=== PATIENT | male | born 1965 | race Caucasian/White ===

== ENCOUNTER 2017-10-31 10:52 | Emergency (ER) | payer OTHER ==
--- OUTSIDE RECORDS SUMMARY | 2017-10-31 11:02 | XMS REPORT ---
:1965 External Reference #:[id number] Author Organization [facility] Address [address] [facility]/[address] [place] [address] Phone [phone] Care Team Providers Name Role Phone Ruchi Pozo MD Care Team Information Manager Spring Unavailable Payers Type Date Identification Numbers Payment Provider Subscriber Commercial Policy Number: [id number] [facility] Mercedezjoseph Cabrales PayID: [id number] [address] [place] [address] Problems Date Description Provider Status Onset: 02/19/2016 Tobacco user Jayden Powell Active Onset: 02/19/2016 Chronic obstructive lung disease AndreJayden MAYLIN Active Family History Date Family Member(s) Problem(s) Comments Father 70 Father Ulcer Mother due to Unknown Causes () - PASSED AT 69 Social History Type Date Description Comments Marital Status Legal Status: ETOH Use Occasionally consumes alcohol Smoking Heavy tobacco smoker (more than 10 cigarettes/day) Daily Caffeine Consumes on average 5 cups of regular coffee per day Allergies, Adverse Reactions, Alerts Date Description Reaction Status Severity Comments 02/15/2017 NKDA active Medications Medication Date Status Form Strength Qnty SIG Indications Ordering Provider No Active Active Unknown Medications 018 Viagra Hx Tablets 100mg 10tabs 1/2-1 tab by N52.9 Sánchez, 017 - mouth every Ahmad M., day as M.DSydney 018 needed Terbinafine Hx Tablets 250mg 90tabs 1 by mouth B35.1 Sánchez, HCL 017 - every day Ahmad M., M.DSydney 018 Mobic Hx Tablets 15mg 30tabs 1 by mouth M25.572 Sánchez, 016 - every Ahmad M., morning-Rx M.D. 018 By Set Up Inspector Vital Signs Date Vital Result Comment 10/08/2017 BP Systolic 118 mmHg BP Diastolic 68 mmHg Height 72 inches 6'0" Weight 249.00 lb BMI (Body Mass Index) 33.8 kg/m2 Heart Rate 80 /min Respiratory Rate 18 /min 06/04/2017 BP Systolic 124 mmHg BP Diastolic 68 mmHg Height 72 inches 6'0" Weight 254.00 lb BMI (Body Mass Index) 34.4 kg/m2 Heart Rate 66 /min Respiratory Rate 18 /min 02/15/2017 BP Systolic 126 mmHg BP Diastolic 66 mmHg Height 72 inches 6'0" Weight 243.00 lb BMI (Body Mass Index) 33.0 kg/m2 Heart Rate 59 /min Respiratory Rate 16 /min 02/28/2016 BP Systolic 130 mmHg BP Diastolic 68 mmHg Height 72 inches 6'0" Weight 241.00 lb BMI (Body Mass Index) 32.7 kg/m2 Heart Rate 78 /min Respiratory Rate 18 /min 02/19/2016 BP Systolic 138 mmHg BP Diastolic 82 mmHg Height 72 inches 6'0" Weight 239.00 lb BMI (Body Mass Index) 32.4 kg/m2 Heart Rate 72 /min Respiratory Rate 19 /min Results Test Date Test Result H/L Range Note CBC Auto Diff 02/15/2017 White Blood Count 6.2 10^3/uL 3.5-10.8 Red Blood Count 5.04 10^6/uL 4.0-5.4 Hemoglobin 15.7 g/dL 14.0-18.0 Hematocrit 45 % 42-52 Mean Corpuscular Volume 90 fL 80-94 Mean Corpuscular Hemoglobin 31 pg 27-31 Mean Corpuscular HGB Conc 35 g/dL 31-36 Red Cell Distribution Width 13 % 10.5-15 Platelet Count 195 10^3/uL 150-450 Mean Platelet Volume 9 um3 7.4-10.4 Abs Neutrophils 3.6 10^3/uL 1.5-7.7 Abs Lymphocytes 2.0 10^3/uL 1.0-4.8 Abs Monocytes 0.4 10^3/uL 0-0.8 Abs Eosinophils 0.2 10^3/uL 0-0.6 Abs Basophils 0 10^3/uL 0-0.2 Abs Nucleated RBC 0 10^3/uL Granulocyte % 58.2 % 38-83 Lymphocyte % 31.3 % 25-47 Monocyte % 6.7 % 1-9 Eosinophil % 3.1 % 0-6 Basophil % 0.7 % 0-2 Nucleated Red Blood Cells % 0.1 Comp Metabolic Panel 02/15/2017 Sodium 137 mmol/L 133-145 Potassium 4.2 mmol/L 3.5-5.0 Chloride 105 mmol/L 101-111 Co2 Carbon Dioxide 25 mmol/L 22-32 Anion Gap 7 mmol/L 2-11 Glucose 96 mg/dL 70-100 Blood Urea Nitrogen 17 mg/dL 6-24 Creatinine 0.88 mg/dL 0.67-1.17 BUN/Creatinine Ratio 19.3 8-20 Calcium 9.5 mg/dL 8.6-10.3 Total Protein 6.6 g/dL 6.4-8.9 Albumin 4.3 g/dL 3.2-5.2 Globulin 2.3 g/dL 2-4 Albumin/Globulin Ratio 1.9 1-3 Total Bilirubin 0.50 mg/dL 0.2-1.0 Alkaline Phosphatase 65 U/L 34-104 Alt 15 U/L 7-52 Ast 17 U/L 13-39 Egfr Non- 90.9 >60 Egfr 117.0 >60 1 Lipid Profile (Trig/Chol/HDL) 02/15/2017 Triglycerides 141 mg/dL 2 Cholesterol 190 mg/dL 3 HDL Cholesterol 48.2 mg/dL 4 LDL Cholesterol 114 mg/dL 5 Laboratory test finding 02/15/2017 TSH (Thyroid Stim Horm) 2.02 mcIU/mL 0.34-5.60 6 Hemoglobin A1c (Glyco HGB) 5.7 % Less than 6.0 7 PSA Screening 0.928 ng/mL 0-4.000 8 Lipid Profile (Trig/Chol/HDL) 02/19/2016 Triglycerides 97 mg/dL 9 Cholesterol 200 mg/dL 10 HDL Cholesterol 56.8 mg/dL 11 LDL Cholesterol 124 mg/dL 12 Laboratory test finding 02/19/2016 TSH (Thyroid Stim Horm) 1.62 ?IU/mL 0.34-5.60 13 Vitamin D Total 25(Oh) 48.1 ng/mL 30-50 14 CBC Auto Diff 02/19/2016 White Blood Count 7.1 10^3/uL 3.5-10.8 Red Blood Count 5.06 10^6/uL 4.0-5.4 Hemoglobin 15.2 g/dL 14.0-18.0 Hematocrit 45 % 42-52 Mean Corpuscular Volume 90 fL 80-94 Mean Corpuscular Hemoglobin 30 pg 27-31 Mean Corpuscular HGB Conc 34 g/dL 31-36 Red Cell Distribution Width 13 % 10.5-15 Platelet Count 205 10^3/uL 150-450 Mean Platelet Volume 9 um3 7.4-10.4 Abs Neutrophils 3.9 10^3/uL 1.5-7.7 Abs Lymphocytes 2.4 10^3/uL 1.0-4.8 Abs Monocytes 0.5 10^3/uL 0-0.8 Abs Eosinophils 0.3 10^3/uL 0-0.6 Abs Basophils 0 10^3/uL 0-0.2 Abs Nucleated RBC 0.03 10^3/uL Granulocyte % 54.4 % 38-83 Lymphocyte % 33.7 % 25-47 Monocyte % 7.6 % 1-9 Eosinophil % 3.7 % 0-6 Basophil % 0.6 % 0-2 Nucleated Red Blood Cells % 0.5 Comp Metabolic Panel 02/19/2016 Sodium 138 mmol/L 133-145 Potassium 4.1 mmol/L 3.5-5.0 Chloride 105 mmol/L 101-111 Co2 Carbon Dioxide 25 mmol/L 22-32 Anion Gap 8 mmol/L 2-11 Glucose 83 mg/dL 70-100 Blood Urea Nitrogen 19 mg/dL 6-24 Creatinine 0.79 mg/dL 0.67-1.17 BUN/Creatinine Ratio 24.1 High 8-20 Calcium 9.6 mg/dL 8.6-10.3 Total Protein 6.9 g/dL 6.4-8.9 Albumin 4.6 g/dL 3.2-5.2 Globulin 2.3 g/dL 2-4 Albumin/Globulin Ratio 2.0 1-3 Total Bilirubin 0.30 mg/dL 0.2-1.0 Alkaline Phosphatase 65 U/L 34-104 Alt 15 U/L 7-52 Ast 16 U/L 13-39 Egfr Non- 103.0 >60 Egfr 132.5 >60 15 Laboratory test finding 02/19/2016 PSA Screening 0.363 ng/mL 0-4.000 16 1 Because ethnic data is not always readily available, this report includes an eGFR for both -Americans and non- Americans. The National Kidney Disease Education Program (NKDEP) does not endorse the use of the MDRD equation for patients that are not between the ages of 18 and 70, are , have extremes of body size, muscle mass, or nutritional status, or are non- or non-. According to the National Kidney Foundation, irrespective of diagnosis, the stage of the disease is based on the level of kidney function: Stage Description GFR(mL/min/1.73 m(2)) 1 Kidney damage with normal or decreased GFR 90 2 Kidney damage with mild decrease in GFR 60-89 3 Moderate decrease in GFR 30-59 4 Severe decrease in GFR 15-29 5 Kidney failure <15 (or dialysis) 2 Desirable <150 Borderline high 150-199 High 200-499 Very High >500 3 Desirable <200 Borderline high 200-239 High >239 4 Low <40 Desirable: 40-60 High: >60 5 Desirable: <100 mg/dL Near Optimal: 100-129 mg/dL Borderline High: 130-159 mg/dL High: 160-189 mg/dL Very High: >189 mg/dL 6 [id number] Therapeutic target for the treatment of diabetes Mellitus patients is <7% HBA1C, and in selective patients <6.0%.Please refer to [place] Diabetes Association Diabetic care guidelines for further information. 8 Serum levels of PSA measured using the [employer] Aki DXI Hybritech immunoassay should not be interpreted as absolute evidence of the presence or absence of disease. The PSA value should be used in conjunction with other pertinent clinical diagnostic procedures. The values obtained with different assay methods or kits cannot be used interchangeably. 9 Desirable <150 Borderline high 150-199 High 200-499 Very High >500 10 Desirable <200 Borderline high 200-239 High >239 11 Low <40 Desirable: 40-60 High: >60 12 Desirable: <100 mg/dL Near Optimal: 100-129 mg/dL Borderline High: 130-159 mg/dL High: 160-189 mg/dL Very High: >189 mg/dL 13 [facility] [place] [id number] [facility] [place] [address] 15 Because ethnic data is not always readily available, this report includes an eGFR for both -Americans and non- Americans. The National Kidney Disease Education Program (NKDEP) does not endorse the use of the MDRD equation for patients that are not between the ages of 18 and 70, are , have extremes of body size, muscle mass, or nutritional status, or are non- or non-. According to the National Kidney Foundation, irrespective of diagnosis, the stage of the disease is based on the level of kidney function: Stage Description GFR(mL/min/1.73 m(2)) 1 Kidney damage with normal or decreased GFR 90 2 Kidney damage with mild decrease in GFR 60-89 3 Moderate decrease in GFR 30-59 4 Severe decrease in GFR 15-29 5 Kidney failure <15 (or dialysis) 16 Serum levels of PSA measured using the [employer]by thredUP DXI Hybritech immunoassay should not be interpreted as absolute evidence of the presence or absence of disease. The PSA value should be used in conjunction with other pertinent clinical diagnostic procedures. A PSA value in the range of 0.1 to 0.6 ng/ml is indeterminate if being used as an indicator of recurrent or residual disease. The values obtained with different assay methods or kits cannot be used interchangeably. Procedures Date CPT Code Description Status 10/08/2017 29817 Visual Screening Test Completed 10/08/2017 01202 Audiometry, Bekesy, Screening Completed 02/15/2017 27852 Visual Screening Test Completed 02/15/2017 52389 EKG Completed 02/15/2017 00417 Audiometry, Bekesy, Screening Completed Encounters Type Date Location Provider CPT E/M Dx Office Visit 10/08/2017 3:15p [facility] Ruchi Pozo M.D. 82890 J44.9 E78.2 L20.9 J30.9 F17.210 E66.01 M15.9 M25.572 M77.32 D48.5 B35.1 N52.9 M25.569 Z00.01 Office Visit 06/04/2017 2:45p [facility] Ruchi Pozo M.D. 26118 J44.9 E78.2 L20.9 J30.9 F17.210 E66.01 M15.9 M25.572 M77.32 D48.5 B35.1 N52.9 Office Visit 02/15/2017 10:15a [facility] Jayden Powell [facility] 20806 Z00.01 F17.210 J44.9 E66.01 M15.9 B35.3 Office Visit 02/28/2016 2:15p [facility] Ruchi Pozo M.D. 48014 M25.572 J44.9 F17.210 E78.2 L20.9 J30.9 D48.5 Office Visit 02/19/2016 11:15a [facility] Jayden Powell [facility] [address]409 M15.9 M77.32 E66.9 Plan of Care 10/08/2017 - Ruchi Pozo M.D.J44.9 Chronic obstructive pulmonary disease, unspecifiedComments:INCREASE PO FLUIDRESTSMOKING TMQNJCODOY72.2 Mixed hyperlipidemiaComments:DIET REVIEWED CONTINUE DIETWT LOSSF/U LAB FBWL20.9 Atopic dermatitis, unspecifiedComments:SKIN CARE INSTRUCTIONS LOTION OR BABY OIL 2-3 APPLICATION PER DAYUSE MOISTURIZING SOAPAVOID PROLONGED WATER EXPOSUREAVOID USING HOT WATER IN DLCWHCN54.9 Allergic rhinitis, unspecifiedComments:INCREASE PO FLUID USE ANTIHISTAMINE PRN SECOND HAND SMOKING MROQLQIGUF93.210 Nicotine dependence, cigarettes, uncomplicatedComments:SMOKING CESSATION COUNCELLING DISCUSSION RE: CESSATION AJZZKWTM34.01 Morbid (severe) obesity due to excess caloriesComments:WT LOSS COUNCELLINGEXERCISEDIET AOTWGVIRXTKI62.9 Polyosteoarthritis, unspecifiedComments:EXERCISE/HEAT/ MESSAGETYLENOL OR MOTRIN PRNAVOID HEAVY LIFTINGWT LOSSM25.572 Pain in left ankle and joints of left footComments:EXERCISE/HEAT/MESSAGETYLENOL OR MOTRIN PRNACE WRAP PRN USE SHOES INSERTS/ CUSHION F/U WITH XHSBNUBEH86.32 Calcaneal spur, left footComments:EXERCISE/HEAT/MESSAGE TYLENOL OR MOTRIN PRNACE WRAP PRND48.5 Neoplasm of uncertain behavior of skinComments:F/U WITH JDCZNTHVZSMR44.1 Tinea unguiumComments:NAIL CARE INSTRUCTIONSTEACHING ABOUT DISEASE AND TREATMENT CQCZKIGU79.9 Male erectile dysfunction, unspecifiedComments:COUNCELLING AND TEACHING ON DIFEEERENT TREATMENT OQHJNQQG27.569 Pain in unspecified kneeComments:EXERCISE/HEAT /MESSAGEAVOID HEAVY LIFTING WT LOSSTYLENOL OR MOTRIN PRNZ00.01 Encounter for general adult medical exam w abnormal findingsComments:GOOD NUTRITION /EXERCISEDENTAL/ FLOSSING/ SELF CAREDROWNING/ SUN SAFETYSEAT BELT/ DRIVING SAFETYSPORT BIKE/ HELMET USESPORTS/ INJURY PREVENTIONVIOLENCE PREVENTION/ GUN SAFETYPARENTING ADVICE"SAFE AT HOME"SEX EDUCATION/ COUNSELINGBREAST/ TESTICULAR SELF EXAMEDUCATION GOALS/ ACTIVITIESLIMIT TV/ INTERNETUSETOBACCO/ ALCOHOL/ DRUGS/ INHALANTSPEER REFUSAL SKILLSSOCIAL INTERACTIONFAMILY FUNCTIONINGSELF CONTROLDEPRESSION/ ANXIETYNEXT APPOINTMENTYEARLY PHYSICAL WELLNESS EVALUATION RTC FOR FBW
[2017-10-31 11:50] VITALS: BP 140/81
--- NOTE | 2017-10-31 12:35 | UC ---
Respiratory Complaint HPI - HPI Summary HPI Summary: 52 yo male with cough x 3 months past day has had fever/chills and myalgias cough now productive - History of Current Complaint Chief Complaint: UCGeneralIllness Stated Complaint: COUGH,HEADACHE,SORE THROAT Time Seen by Provider: 10/31/17 12:20 Hx Obtained From: Patient Onset/Duration: Gradual Onset, Lasting Weeks - 12 Timing: Constant Severity Initially: Mild Severity Currently: Mild Pain Intensity: 4 Pain Scale Used: 0-10 Numeric Character: Cough: Nonproductive Aggravating Factors: Nothing Associated Signs And Symptoms: Positive: Fever - x 1 days, Chills - x 1 day, Nasal Congestion - Allergies/Home Medications Allergies/Adverse Reactions: Allergies Allergy/AdvReac Type Severity Reaction Status Date / Time No Known Allergies Allergy Verified 10/31/17 11:42 Home Medications: Home Medications L.acidoph,Paracasei, B.lactis [Probiotic] 10/31/17 [History] Melatonin PRN 10/31/17 [History] PMH/Surg Hx/FS Hx/Imm Hx Previously Healthy: Yes - Surgical History Surgical History: Yes Surgery Procedure, Year, and Place: right knee 2009~;. testicular benign mass 1988. basal cell removal left shoulder. DEVIATED SEPTUM - Family History Known Family History: Positive: Hypertension - Social History Alcohol Use: Rare Substance Use Type: None Smoking Status (MU): Heavy Every Day Tobacco Smoker Amount Used/How Often: 1 ppd Length of Time of Smoking/Using Tobacco: started age 14 Cessation Counseling: Patient Advised to Stop Review of Systems Constitutional: Fever, Chills Respiratory: Cough - x3 m Musculoskeletal: Negative Neurological: Negative Is Patient Immunocompromised?: No All Other Systems Reviewed And Are Negative: Yes Physical Exam Triage Information Reviewed: Yes Appearance: Well-Appearing, No Pain Distress, Well-Nourished Vital Signs: Initial Vital Signs Temp 98.7 F 10/31/17 11:44 Pulse 81 10/31/17 11:44 Resp 18 10/31/17 11:44 BP 140/81 10/31/17 11:44 Pulse Ox 97 10/31/17 11:44 Vital Signs Reviewed: Yes Eyes: Positive: Conjunctiva Clear ENT: Positive: Uvula midline. Negative: Nasal congestion, Nasal drainage Neck: Positive: Supple, Nontender Respiratory: Positive: Normal breath sounds, No respiratory distress, Wheezing - with forced expiration only Cardiovascular: Positive: RRR, No Murmur Neurological: Positive: Alert Psychological Exam: Normal Skin Exam: Normal UC Diagnostic Evaluation - Laboratory Pertinent Lab Values Are: WNL Except: - influenza B (+) O2 Sat by Pulse Oximetry: 97 - normal/not hypoxic - Radiology Xray Interpretation: No Acute Changes Radiology Interpretation Completed By: Radiologist Respiratory Course/Dx - Differential Dx/Diagnosis Provider Diagnoses: influenza. chronic cough. tobacco abuse Discharge - Discharge Plan Condition: Stable Disposition: HOME Prescriptions: Oseltamivir CAP* [Tamiflu CAP*] 75 mg PO BID #10 cap Patient Education Materials: Influenza (ED) Forms: *Work Release Referrals: Ruchi Pozo MD [Primary Care Provider] - As Soon As Possible Additional Instructions: you have the flu you need to stop smoking see your MD about your chronic cough....you may need pulmonary function studies
--- NOTE | 2017-10-31 12:51 | RAD ---
HISTORY: Cough COMPARISONS: February 26, 2016 VIEWS: 4: Frontal dual-energy and lateral views of the chest. FINDINGS: CARDIOMEDIASTINAL SILHOUETTE: The cardiomediastinal silhouette is normal. SRIKANTH: The srikanth are normal. PLEURA: The costophrenic angles are sharp. No pleural abnormalities are noted. LUNG PARENCHYMA: The lungs are clear. ABDOMEN: The upper abdomen is clear. There is no subphrenic gas. BONES AND SOFT TISSUES: No bone or soft tissue abnormalities are noted. OTHER: None. IMPRESSION: NO ACTIVE CARDIOPULMONARY DISEASE.
== END 2017-10-31 13:04 | disposition home or self-care (01) ==
LOC: UCCORT 10:52
DX: J10.1 Influenza due to other identified influenza virus with other respiratory manifestations (principal); R05 Cough; F17.210 Nicotine dependence, cigarettes, uncomplicated
CPT/HCPCS: 71046; 87502; 99212; G0463

== ENCOUNTER 2018-11-27 08:30 | Emergency (ER) | payer OTHER ==
[2018-11-27 09:09] VITALS: BP 111/70
--- NOTE | 2018-11-27 09:46 | UC ---
Respiratory Complaint HPI - HPI Summary HPI Summary: Pt c/o of nasal congestion, cough, wheezing, X 2 weeks. - History of Current Complaint Chief Complaint: UCRespiratory Stated Complaint: COUGH,CONGESTION Time Seen by Provider: 11/27/18 09:31 Hx Obtained From: Patient Onset/Duration: Gradual Onset, Lasting Weeks, Still Present Timing: Constant Severity Initially: Mild Severity Currently: Moderate Pain Intensity: 0 Character: Cough: Productive Aggravating Factors: Exertion, Deep Breaths, Recumbent Position Alleviating Factors: Nothing Associated Signs And Symptoms: Positive: Chills, Wheezing, URI, Nasal Congestion - Risk Factors Pulmonary Embolism Risk Factors: Smoking Cardiac Risk Factors: Smoking Pseudomonas Risk Factors: Negative Tuberculosis Risk Factors: Negative - Allergies/Home Medications Allergies/Adverse Reactions: Allergies Allergy/AdvReac Type Severity Reaction Status Date / Time No Known Allergies Allergy Verified 11/27/18 09:09 PMH/Surg Hx/FS Hx/Imm Hx Previously Healthy: Yes - Surgical History Surgical History: Yes Surgery Procedure, Year, and Place: right knee 2009~;. testicular benign mass 1988. basal cell removal left shoulder. DEVIATED SEPTUM - Family History Known Family History: Positive: Hypertension - Social History Occupation: Employed Full-time Lives: With Family Alcohol Use: Rare Substance Use Type: None Smoking Status (MU): Heavy Every Day Tobacco Smoker Type: Cigarettes Amount Used/How Often: 1.5 ppd Length of Time of Smoking/Using Tobacco: started age 14 Have You Smoked in the Last Year: Yes - Immunization History Vaccination Up to Date: No Review of Systems All Other Systems Reviewed And Are Negative: Yes Constitutional: Positive: Fatigue Skin: Positive: Negative Eyes: Positive: Negative ENT: Positive: Sinus Congestion Respiratory: Positive: Shortness Of Breath, Cough Cardiovascular: Positive: Negative Gastrointestinal: Positive: Negative Genitourinary: Positive: Negative Motor: Positive: Negative Neurovascular: Positive: Negative Musculoskeletal: Positive: Negative Neurological: Positive: Negative Psychological: Positive: Negative Is Patient Immunocompromised?: No Physical Exam Triage Information Reviewed: Yes Appearance: Ill-Appearing Vital Signs: Initial Vital Signs Temp 98.3 F 11/27/18 09:03 Pulse 69 11/27/18 09:03 Resp 16 11/27/18 09:03 BP 111/70 11/27/18 09:03 Pulse Ox 98 11/27/18 09:03 Vital Signs Reviewed: Yes Eye Exam: Normal ENT: Positive: Nasal congestion Dental Exam: Normal Neck exam: Normal Respiratory: Positive: Decreased breath sounds Cardiovascular Exam: Normal Musculoskeletal Exam: Normal Neurological Exam: Normal Psychological Exam: Normal Skin Exam: Normal Respiratory Course/Dx - Differential Dx/Diagnosis Differential Diagnosis/HQI/PQRI: Bronchitis, Exacerbation Of COPD Provider Diagnosis: Acute exacerbation of chronic obstructive airways disease, Bronchitis Discharge - Sign-Out/Discharge Documenting (check all that apply): Patient Departure All imaging exams completed and their final reports reviewed: No Studies - Discharge Plan Condition: Stable Disposition: HOME Prescriptions: Azithromycin TAB* [Zithromax TAB (Z-CARRIE) 250 mg #6 tabs] 2 tab PO .TODAY, THEN 1 DAILY #1 carrie Fexofenadine/Pseudoephedrine [Rebecca-D 24 Hour Tablet] 1 each PO DAILY #7 tab.er.24h predniSONE TAB* [Deltasone 20 MG TAB*] 20 mg PO DAILY #4 tab Patient Education Materials: Acute Bronchitis (ED), COPD (Chronic Obstructive Pulmonary Disease) (ED) Referrals: Ruchi Pozo MD [Primary Care Provider] - If Needed - Billing Disposition and Condition Condition: STABLE Disposition: Home - Attestation Statements Provider Attestation: Per institutional requirements, I have reviewed the chart, however, I was not consulted specifically or made aware of this patient by the midlevel provider. I did not personally evaluate, interact with , or disposition this patient.
== END 2018-11-27 10:02 | disposition home or self-care (01) ==
LOC: UCCORT 08:30
DX: J44.1 Chronic obstructive pulmonary disease with (acute) exacerbation (principal); F17.210 Nicotine dependence, cigarettes, uncomplicated
CPT/HCPCS: 99212; G0463

== ENCOUNTER 2019-01-14 16:50 | Emergency (ER) | payer OTHER ==
--- OUTSIDE RECORDS SUMMARY | 2019-01-14 17:06 | XMS REPORT | Continuity of Care Document ---
:1965 External Reference #:[id number] Author Name Geraldo Mendenhall N.P. 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/2016 Family History Date Family Member(s) Observation Comments Father 70 Father Ulcer Mother due to Unknown Causes () - PASSED AT 69 Social History Type Date Description Comments Sex Unknown Marital Status Legal Status: ETOH Use Occasionally consumes alcohol Tobacco Use Start: Unknown Heavy tobacco smoker (more than 10 cigarettes/day) Smoking Status Reviewed: 01/03/19 Heavy tobacco smoker (more than 10 cigarettes/day) Allergies, Adverse Reactions, Alerts Description No Known Drug Allergies Medications Active Medications SIG Qnty Indications Ordering Date Provider SM Stool Softener 2 tabs po bid prn 120tabs K59.00 Ruchi Pozo 01/04/2019 Plus Laxative constipation Jason James 8.6-50mg Tablets Claritin 1 by mouth every 30caps J30.9 Margo Pozomaparas 05/13/2018 10mg day Jason James Capsules Azithromycin 1 tab by mouth 10tabs J20.9 SánchezMargomad 05/13/2018 500mg every day x 10 days Jason James Tablets History Medications Amoxicillin 2 by mouth twice a 40tabs J20.9 [facility] 11/11/2017 - 500mg day MJason Grimes 11/20/2017 Tablets Prednisone 2 tab by mouth 20tabs J20.9 [facility] 11/11/2017 - 20mg daily 4 M.Jason 11/20/2017 Tablets days,30x3d,20x2d,1 0x7d No Active Unknown 10/08/2017 - Medications 11/11/2017 Viagra 1/2-1 tab by mouth 10tabs N52.9 [facility] 06/04/2017 - 100mg every day as Jason aJmes 09/23/2017 Tablets needed Terbinafine HCL 1 by mouth every 90tabs B35.1 [facility] 06/04/2017 - day Jason James 09/23/2017 250mg Tablets Mobic 1 by mouth every 30tabs M25.572 [facility] 02/28/2016 - 15mg Tablets morning-Rx By Jason James 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 Vital Signs Date Vital Result Comment 01/04/2019 4:19pm BP Systolic 132 mmHg BP Diastolic 64 mmHg Height 72 inches 6'0" Weight 247.00 lb BMI (Body Mass Index) 33.5 kg/m2 12/21/2018 8:38am BP Systolic 126 mmHg BP Diastolic 72 mmHg Height 72 inches 6'0" Weight 246.00 lb BMI (Body Mass Index) 33.4 kg/m2 Heart Rate 73 /min Respiratory Rate 16 /min 12/01/2018 3:41pm BP Systolic 126 mmHg BP Diastolic 68 mmHg Height 72 inches 6'0" Weight 246.00 lb BMI (Body Mass Index) 33.4 kg/m2 Heart Rate 84 /min Respiratory Rate 18 /min 05/13/2018 4:04pm BP Systolic 132 mmHg BP Diastolic 64 mmHg Height 72 inches 6'0" Weight 243.00 lb BMI (Body Mass Index) 33.0 kg/m2 Heart Rate 73 /min Body Temperature 97.3 F Respiratory Rate 14 /min 11/11/2017 4:26pm BP Systolic 130 mmHg BP Diastolic 62 mmHg Height 72 inches 6'0" Weight 249.00 lb BMI (Body Mass Index) 33.8 kg/m2 Heart Rate 68 /min Body Temperature 97.3 F Respiratory Rate 18 /min 10/08/2017 3:06pm BP Systolic 118 mmHg BP Diastolic 68 mmHg Height 72 inches 6'0" Weight 249.00 lb BMI (Body Mass Index) 33.8 kg/m2 Heart Rate 80 /min Respiratory Rate 18 /min 06/04/2017 2:49pm BP Systolic 124 mmHg BP Diastolic 68 mmHg Height 72 inches 6'0" Weight 254.00 lb BMI (Body Mass Index) 34.4 kg/m2 Heart Rate 66 /min Respiratory Rate 18 /min 02/15/2017 10:02am BP Systolic 126 mmHg BP Diastolic 66 mmHg Height 72 inches 6'0" Weight 243.00 lb BMI (Body Mass Index) 33.0 kg/m2 Heart Rate 59 /min Respiratory Rate 16 /min 02/28/2016 2:20pm BP Systolic 130 mmHg BP Diastolic 68 mmHg Height 72 inches 6'0" Weight 241.00 lb BMI (Body Mass Index) 32.7 kg/m2 Heart Rate 78 /min Respiratory Rate 18 /min 02/19/2016 11:12am BP Systolic 138 mmHg BP Diastolic 82 mmHg Height 72 inches 6'0" Weight 239.00 lb BMI (Body Mass Index) 32.4 kg/m2 Heart Rate 72 /min Respiratory Rate 19 /min Results Test Date Facility Test Result H/L Range Note CBC With Diff 12/21/2018 [facility] WBC 5.0 10*3/uL (4.1-11.0) [facility] (607)- - RBC 4.96 10*6/uL (4.60-6.10) HGB 15.1 g/dL (13.5-18.0) HCT 44.8 % (41.0-53.0) MCV 90.4 fL (80.0-95.0) MCH 30.4 pg (27.0-32.0) MCHC 33.7 g/dL (32.0-36.0) RDW 13.4 % (10.5-14.5) PLT 201 10*3/uL (150-450) MPV 9.3 fL (7.1-10.7) Neut % 63.8 % (35.0-75.0) Lymph % 25.4 % (16.0-52.0) [place] % 7.6 % (0.0-8.0) Eos % 2.6 % (0.0-5.0) Baso % 0.6 % (0.0-4.0) Neut # 3.2 10*3/uL (1.8-7.7) Lymph # 1.3 10*3/uL (1.2-4.8) [place] # 0.4 10*3/uL (0.0-0.8) Eos # 0.1 10*3/uL (0.0-0.5) Baso # 0.0 10*3/uL (0.0-0.2) CMP 12/21/2018 [facility] Sodium 139 mmol/L (136-145) Zack SEE (308)- - Potassium 3.9 mmol/L (3.6-5.2) Chloride 108 mmol/L (100-108) Co2 27 mmol/L (22-31) Anion Gap 4 mmol/L Low (7-16) Urea Nitrogen 15 mg/dL (7-24) Creatinine 0.78 mg/dL Low (0.80-1.30) BUN/Creat Ratio 19.2 RATIO (10.0-20.0) Glucose 81 mg/dL (70-99) Calcium 8.5 mg/dL (8.4-10.2) Total Protein 6.7 g/dL (6.4-8.2) Albumin 4.4 g/dL (3.5-4.6) Globulin 2.3 g/dL Low (2.7-4.3) Alb/Glob Ratio 1.9 RATIO Alkaline Phosphatase 87 U/L (45-117) Bilirubin,Total 0.4 mg/dL (0.0-1.0) Ast (Sgot) 29 U/L (11-39) Alt (SGPT) 53 U/L (12-78) GFR >60 ml/min/1.73m2 (>59) GFR ( Amer) >60 ml/min/1.73m2 (>59) GFR Interpretation <SEE NOTE> 1 Lipid 12/21/2018 [facility] Cholesterol @ 126 mg/dL (0-200) Zack SEE (392)- - Triglyceride @ 50 mg/dL (30-200) HDL Cholesterol @ 40 mg/dL Low (>40) 2 Chol/HDL Ratio 3.2 RATIO 3 LDL Chol (Calc) 76 mg/dL (<130) 4 Hemoglobin A1c 12/21/2018 [facility] Hemoglobin A1c @ 5.7 % (4.0-6.0) 5 113 NARA SEE (607)- - Est Average Glucose 117 mg/dL Laboratory 12/21/2018 [facility] TSH,Ultrasensitive @ 1.480 (0.360- 4.170) test finding 113 NARA SEE mIU/L (607)- - Uric Acid 5.6 mg/dL (3.5-7.2) Esr 3 mm/h (0-20) C Reactive Protein @ <0.3 mg/dL (0.0-0.5) Rheumatoid Factor @ <15 IU/mL (0-15) 25 Hydroxy Vit D @ 36 ng/mL (31-100) 6 Rapid Influenza A 10/31/2017 [facility] Influenza A NEGATIVE Negative 7 & B Molecular Molecular Influenza B Molecular POSITIVE Abnormal Negative Lipid Profile (Trig/Chol/HDL) 02/15/2017 [facility] Triglycerides 141 mg/dL N 8 Cholesterol 190 mg/dL N 9 HDL Cholesterol 48.2 mg/dL N 10 LDL Cholesterol 114 mg/dL N 11 Laboratory test 02/15/2017 [facility] TSH (Thyroid 2.02 mcIU/mL N 0.34-5.60 12 finding Stim Horm) Hemoglobin A1c (Glyco HGB) 5.7 % N Less than 6.0 13 PSA Screening 0.928 ng/mL N 0-4.000 14 Comp Metabolic Panel 02/15/2017 [facility] Sodium 137 mmol/L N 133- 145 Potassium 4.2 mmol/L N 3.5-5.0 Chloride 105 mmol/L N 101-111 Co2 Carbon Dioxide 25 mmol/L N 22-32 Anion Gap 7 mmol/L N 2-11 Glucose 96 mg/dL N 70-100 Blood Urea Nitrogen 17 mg/dL N 6-24 Creatinine 0.88 mg/dL N 0.67-1.17 BUN/Creatinine Ratio 19.3 N 8-20 Calcium 9.5 mg/dL N 8.6-10.3 Total Protein 6.6 g/dL N 6.4-8.9 Albumin 4.3 g/dL N 3.2-5.2 Globulin 2.3 g/dL N 2-4 Albumin/Globulin Ratio 1.9 N 1-3 Total Bilirubin 0.50 mg/dL N 0.2-1.0 Alkaline Phosphatase 65 U/L N 34-104 Alt 15 U/L N 7-52 Ast 17 U/L N 13-39 Egfr Non- 90.9 N >60 Egfr 117.0 N >60 15 CBC Auto Diff 02/15/2017 [facility] White Blood Count 6.2 10^3/uL N 3.5-10.8 Red Blood Count 5.04 10^6/uL N 4.0-5.4 Hemoglobin 15.7 g/dL N 14.0-18.0 Hematocrit 45 % N 42-52 Mean Corpuscular Volume 90 fL N 80-94 Mean Corpuscular Hemoglobin 31 pg N 27-31 Mean Corpuscular HGB Conc 35 g/dL N 31-36 Red Cell Distribution Width 13 % N 10.5-15 Platelet Count 195 10^3/uL N 150-450 Mean Platelet Volume 9 um3 N 7.4-10.4 Abs Neutrophils 3.6 10^3/uL N 1.5-7.7 Abs Lymphocytes 2.0 10^3/uL N 1.0-4.8 Abs Monocytes 0.4 10^3/uL N 0-0.8 Abs Eosinophils 0.2 10^3/uL N 0-0.6 Abs Basophils 0 10^3/uL N 0-0.2 Abs Nucleated RBC 0 10^3/uL N Granulocyte % 58.2 % N 38-83 Lymphocyte % 31.3 % N 25-47 Monocyte % 6.7 % N 1-9 Eosinophil % 3.1 % N 0-6 Basophil % 0.7 % N 0-2 Nucleated Red Blood Cells % 0.1 N Laboratory test 02/19/2016 [facility] PSA Screening 0.363 ng/mL N 0- 4.000 16 finding Comp Metabolic Panel 02/19/2016 [facility] Sodium 138 mmol/L N 133- 145 Potassium 4.1 mmol/L N 3.5-5.0 Chloride 105 mmol/L N 101-111 Co2 Carbon Dioxide 25 mmol/L N 22-32 Anion Gap 8 mmol/L N 2-11 Glucose 83 mg/dL N 70-100 Blood Urea Nitrogen 19 mg/dL N 6-24 Creatinine 0.79 mg/dL N 0.67-1.17 BUN/Creatinine Ratio 24.1 High 8-20 Calcium 9.6 mg/dL N 8.6-10.3 Total Protein 6.9 g/dL N 6.4-8.9 Albumin 4.6 g/dL N 3.2-5.2 Globulin 2.3 g/dL N 2-4 Albumin/Globulin Ratio 2.0 N 1-3 Total Bilirubin 0.30 mg/dL N 0.2-1.0 Alkaline Phosphatase 65 U/L N 34-104 Alt 15 U/L N 7-52 Ast 16 U/L N 13-39 Egfr Non- 103.0 N >60 Egfr 132.5 N >60 17 CBC Auto Diff 02/19/2016 [facility] White Blood Count 7.1 10^3/uL N 3.5-10.8 Red Blood Count 5.06 10^6/uL N 4.0-5.4 Hemoglobin 15.2 g/dL N 14.0-18.0 Hematocrit 45 % N 42-52 Mean Corpuscular Volume 90 fL N 80-94 Mean Corpuscular Hemoglobin 30 pg N 27-31 Mean Corpuscular HGB Conc 34 g/dL N 31-36 Red Cell Distribution Width 13 % N 10.5-15 Platelet Count 205 10^3/uL N 150-450 Mean Platelet Volume 9 um3 N 7.4-10.4 Abs Neutrophils 3.9 10^3/uL N 1.5-7.7 Abs Lymphocytes 2.4 10^3/uL N 1.0-4.8 Abs Monocytes 0.5 10^3/uL N 0-0.8 Abs Eosinophils 0.3 10^3/uL N 0-0.6 Abs Basophils 0 10^3/uL N 0-0.2 Abs Nucleated RBC 0.03 10^3/uL N Granulocyte % 54.4 % N 38-83 Lymphocyte % 33.7 % N 25-47 Monocyte % 7.6 % N 1-9 Eosinophil % 3.7 % N 0-6 Basophil % 0.6 % N 0-2 Nucleated Red Blood Cells % 0.5 N Laboratory test 02/19/2016 [facility] TSH (Thyroid 1.62 ?IU/mL N 0.34 -5.60 18 finding Stim Horm) Vitamin D Total 25(Oh) 48.1 ng/mL N 30-50 19 Lipid Profile (Trig/Chol/HDL) 02/19/2016 [facility] Triglycerides 97 mg /dL N 20 Cholesterol 200 mg/dL N 21 HDL Cholesterol 56.8 mg/dL N 22 LDL Cholesterol 124 mg/dL N 23 1 NORMAL KIDNEY FUNCTION OR MILD DISEASE - GFR >OR=60 CHRONIC KIDNEY DISEASE - GFR 15 - 59 RENAL FAILURE - GFR <15 Est. GFR calculation based on the MDRD study equation, which assumes a steady state for creatinine. Est. GFR should not be used for medication dosing. 2 PER NCEP ATP III GUIDELINES: RESULTS LOWER THAN 40 MG/DL ARE SUGGESTIVE OF INCREASED RISK FOR CORONARY ARTERY DISEASE. RESULTS > OR=TO 60 MG/DL ARE CONSIDERED A NEGATIVE RISK FACTOR. 3 INTERPRETATION OF CHOL-HDL RATIO CHD RISK FEMALE MALE VERY HIGH >8.3 >14.3 HIGH 5.6- 8.3 6.7- 14.3 AVERAGE 3.7- 5.6 4.0- 6.7 BELOW AVERAGE 2.5- 3.7 2.7- 4.0 PROTECTED <2.5 <2.7 4 PER NCEP ATP III GUIDELINES: OPTIMAL < 100 NEAR OPTIMAL 100 - 129 BORDERLINE HIGH 130 - 159 HIGH 160 - 189 VERY HIGH > 189 5 Performed using Siemens Silverpeak immunoassay. Care must be taken when interpreting HbA1c results in patients with a hemoglobin variant or decreased erythrocyte lifespan. Values 5.7 - 6.4% suggest prediabetes. Values >=6.5% are diagnostic for diabetes. REFERENCE: DIABETES CARE 2018: 41([id number]). 6 A REVIEW OF THE LITERATURE SUGGESTS THE FOLLOWING RANGES FOR THE CLASSIFICATION OF 25-OH VITAMIN D STATUS: VITAMIN D STATUS 25-OH VITAMIN D DEFICIENCY <20 NG/ML INSUFFICIENCY 20-30 NG/ML SUFFICIENCY 31 - 100 NG/ML TOXICITY > 100 NG/ML A PEDIATRIC REFERENCE RANGE HAS NOT BEEN ESTABLISHED USING THIS METHOD. 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 14 Serum levels of PSA measured using the Swyft DXI Hybritech immunoassay should not be interpreted as absolute evidence of the presence or absence of disease. The PSA value should be used in conjunction with other pertinent clinical diagnostic procedures. The values obtained with different assay methods or kits cannot be used interchangeably. 15 Because ethnic data is not always [...] Serum levels of PSA measured using the Swyft DXI Hybritech immunoassay should not be interpreted [...] methods or kits cannot be used interchangeably. 17 Because ethnic data is not always readily [...] 15-29 5 Kidney failure <15 (or dialysis) 18 [facility] [address] 19 [facility] [id number] 20 Desirable <150 Borderline high 150-199 High 200-499 Very High >500 21 Desirable <200 Borderline high 200-239 High >239 22 Low <40 Desirable: 40-60 High: >60 23 Desirable: <100 mg/dL Near Optimal: 100-129 mg/dL Borderline High: 130-159 mg/dL High: 160-189 mg/dL Very High: >189 mg/dL Procedures Date Code Description Status 05/13/2018 41823 Spirometry Completed 05/13/2018 20674 Tympanometry Completed 11/11/2017 68900 Spirometry Completed 11/11/2017 25953 Tympanometry Completed 10/08/2017 31401 Visual Screening Test Completed 10/08/2017 65146 Audiometry, Bekesy, Screening Completed 02/15/2017 89557 Visual Screening Test Completed 02/15/2017 69450 EKG Completed 02/15/2017 09522 Audiometry, Bekesy, Screening Completed Encounters Type Date Location Provider Dx Diagnosis Office Visit 01/04/2019 [facility] Geraldo Mendenhall J44.9 Chronic obstructive 4:15p N.P. 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 pulmonary disease, unspecified E78.2 Mixed hyperlipidemia L20.9 Atopic dermatitis, unspecified J30.9 Allergic rhinitis, unspecified F17.210 Nicotine dependence, cigarettes, uncomplicated E66.01 Morbid (severe) obesity due to excess calories M15.9 Polyosteoarthritis, unspecified R05 Cough M25.572 Pain in left ankle and joints of left foot M77.32 Calcaneal spur, left foot R06.02 Shortness of breath D48.5 Neoplasm of uncertain behavior of skin N52.9 Male erectile dysfunction, unspecified J01.40 Acute pansinusitis, unspecified M25.569 Pain in unspecified knee J20.9 Acute bronchitis, unspecified Office Visit 11/11/2017 4:45p [facility] desirae J44.9 Chronic obstructive M., M.D. pulmonary disease, unspecified E78.2 Mixed hyperlipidemia L20.9 Atopic dermatitis, unspecified J30.9 Allergic rhinitis, unspecified F17.210 Nicotine dependence, cigarettes, uncomplicated E66.01 Morbid (severe) obesity due to excess calories M15.9 Polyosteoarthritis, unspecified M25.572 Pain in left ankle and joints of left foot M77.32 Calcaneal spur, left foot D48.5 Neoplasm of uncertain behavior of skin B35.1 Tinea unguium N52.9 Male erectile dysfunction, unspecified M25.569 Pain in unspecified knee J20.9 Acute bronchitis, unspecified J01.40 Acute pansinusitis, unspecified H66.93 Otitis media, unspecified, bilateral R06.02 Shortness of breath R05 Cough R09.81 Nasal congestion Office Visit 10[facility]08[facility]2017 [facility] J44.9 Chronic obstructive M., M.D. pulmonary disease, unspecified E78.2 Mixed hyperlipidemia L20.9 Atopic dermatitis, unspecified J30.9 Allergic rhinitis, unspecified F17.210 Nicotine dependence, cigarettes, uncomplicated E66.01 Morbid (severe) obesity due to excess calories M15.9 Polyosteoarthritis, unspecified M25.572 Pain in left ankle and joints of left foot Z68.33 Body mass index (BMI) 33.0-33.9, adult M77.32 Calcaneal spur, left foot D48.5 Neoplasm of uncertain behavior of skin B35.1 Tinea unguium N52.9 Male erectile dysfunction, unspecified M25.569 Pain in unspecified knee Z00.01 Encounter for general adult medical exam w abnormal findings Office Visit 06/04/2017 2:45p [facility] Ruchi Pozo J44.9 Chronic obstructive M., M.D. 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 unspecified M77.32 Calcaneal spur, left foot E66.9 Obesity, unspecified Plan of Treatment 01/04/2019 - Geraldo Mendenhall N.P.J44.9 Chronic obstructive pulmonary disease, unspecifiedComments:INCREASE PO FLUIDRESTSMOKING JULOQJYGKV17.2 Mixed hyperlipidemiaComments:DIET REVIEWED CONTINUE DIETWT LOSSF/U LAB FBWL20.9 Atopic dermatitis, unspecifiedComments:SKIN CARE INSTRUCTIONS LOTION OR BABY OIL 2-3 APPLICATION PER DAYUSE MOISTURIZING SOAPAVOID PROLONGED WATER EXPOSUREAVOID USING HOT WATER IN AIFPCRP26.9 Allergic rhinitis, unspecifiedComments:INCREASE PO FLUID USE ANTIHISTAMINE PRN SECOND HAND SMOKING LZYOCMAYMI80.210 Nicotine dependence, cigarettes, uncomplicatedComments:SMOKING CESSATION KNHCVSXRGOJL88.01 Morbid (severe) obesity due to excess caloriesComments:WT LOSS COUNCELLINGEXERCISEDIET AUXVWJAIBXHS85.9 Polyosteoarthritis, unspecifiedComments:EXERCISE/HEAT/MESSAGETYLENOL OR MOTRIN PRNAVOID HEAVY LIFTINGWT LOSSM25.572 Pain in left ankle and joints of left footComments:EXERCISE/HEAT/MESSAGETYLENOL OR MOTRIN PRNACE WRAP PRN USE SHOES INSERTS/ CUSHION F/U WITH WPHDLSFNK61.32 Calcaneal spur, left footComments: EXERCISE/HEAT/MESSAGE TYLENOL OR MOTRIN PRNACE WRAP PRND48.5 Neoplasm of uncertain behavior of skinComments:F/U WITH XBMUXZLEMCXU60.1 Tinea unguiumComments:NAIL CARE INSTRUCTIONSTEACHING ABOUT DISEASE AND TREATMENT KFNMZVKH69.9 Male erectile dysfunction, unspecifiedComments:COUNCELLING AND TEACHING ON DIFEEERENT TREATMENT BWDAUNHD55.569 Pain in unspecified kneeComments :EXERCISE/HEAT /MESSAGEAVOID HEAVY LIFTING WT LOSSTYLENOL OR MOTRIN PRND40.11 Neoplasm of uncertain behavior of right jhyiwyR66.811 Right testicular painComments:MQNSGPLT99.9 Vitamin D deficiency, unspecifiedComments:INCREASE EXPOSURE TO SUNREVIEW OF DIETK59.00 Constipation, unspecifiedNew Medication:SM Stool Softener Plus Laxative 8.6-50 mg - 2 tabs po bid prn constipationComments: MOM OR MIRALAX PRNHIGH FIBER DIETINCREASE PO FLUID
--- OUTSIDE RECORDS SUMMARY | 2019-01-14 17:06 | XMS REPORT | Continuity of Care Document ---
:1965 External Reference #:[id number] Author Name Geraldo Mendenhall N.P. 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 Family History Date Family Member(s) Observation Comments Father 70 Father Ulcer Mother due to Unknown Causes () - PASSED AT 69 Social History Type Date Description Comments Sex Unknown Marital Status Legal Status: ETOH Use Occasionally consumes alcohol Tobacco Use Start: Unknown Heavy tobacco smoker (more than 10 cigarettes/day) Smoking Status Reviewed: 12/21/18 Heavy tobacco smoker (more than 10 cigarettes/day) Allergies, Adverse Reactions, Alerts Description No Known Drug Allergies Medications Active Medications SIG Qnty Indications Ordering Provider Date Claritin 1 by mouth 30caps J30.9 Ruchi Pozo, 05/13/2018 10mg Capsules every day M.D. Azithromycin 1 tab by mouth 10tabs J20.9 Ruchi Pozo, 05/13/2018 500mg every day x 10 M.D. Tablets days History Medications Amoxicillin 2 by mouth twice a 40tabs J20.9 Ruchi Pozo 11/11/2017 - 500mg day M., MSydneyD. 11/20/2017 Tablets Prednisone 2 tab by mouth 20tabs J20.9 [facility] - 20mg daily 4 Jason James 11/20/2017 Tablets days,30x3d,20x2d,1 0x7d No Active Unknown 10/08/2017 - Medications 11/11/2017 Viagra 1/2-1 tab by mouth 10tabs N52.9 [facility] 06/04/2017 - 100mg every day as Jason James 09/23/2017 Tablets needed Terbinafine HCL 1 by mouth every 90tabs B35.1 [facility] 06/04/2017 - day Jason James 09/23/2017 250mg Tablets Mobic 1 by mouth every 30tabs M25.572 [facility] 02/28/2016 - 15mg Tablets morning-Rx By Jason James 09/23/2017 Supervisor Smoke Control Immunizations Description No Information Available Vital Signs Date Vital Result Comment 12/21/2018 8:38am BP Systolic 126 mmHg BP [...] Date Facility Test Result H/L Range Note Laboratory test 12/21/2018 [facility] Hemoglobin A1c <pending> finding 113 [facility] SEE (267)- - TSH, Ultrasenstive <pending> Uric Acid <pending> Sed Rate <pending> C Reactive Protein <pending> Rheumatoid Factor <pending> Vitamin D 25 Hydroxy <pending> Rapid Influenza A 10/31/2017 [facility] Influenza A NEGATIVE Negative 1 & B Molecular Molecular Influenza B Molecular POSITIVE Abnormal Negative CBC Auto Diff 02/15/2017 [facility] White Blood Count 6.2 10^3/uL N [...] Nucleated Red Blood Cells % 0.1 N Comp Metabolic Panel 02/15/2017 [facility] Sodium 137 mmol/L N 133- 145 [...] 90.9 N >60 Egfr 117.0 N >60 2 Lipid Profile (Trig/Chol/HDL) 02/15/2017 [facility] Triglycerides 141 mg/dL N 3 Cholesterol 190 mg/dL N 4 HDL Cholesterol 48.2 mg/dL N 5 LDL Cholesterol 114 mg/dL N 6 Laboratory test 02/15/2017 [facility] TSH (Thyroid 2.02 mcIU/mL N 0.34-5.60 7 finding Stim Horm) Hemoglobin A1c (Glyco HGB) 5.7 % N Less than 6.0 8 PSA Screening 0.928 ng/mL N 0-4.000 9 Laboratory test 02/19/2016 [facility] PSA Screening 0.363 ng/mL N 0- 4.000 10 finding Comp Metabolic Panel 02/19/2016 [facility] Sodium 138 mmol/L N 133- 145 [...] 103.0 N >60 Egfr 132.5 N >60 11 CBC Auto Diff 02/19/2016 [facility] White Blood Count 7.1 10^3/uL N [...] Cells % 0.5 N Laboratory test 02/19/2016 [facility] TSH (Thyroid 1.62 ?IU/mL N 0.34 -5.60 12 finding Stim Horm) Vitamin D Total 25(Oh) 48.1 ng/mL N 30-50 13 Lipid Profile (Trig/Chol/HDL) 02/19/2016 [facility] Triglycerides 97 mg /dL N 14 Cholesterol 200 mg/dL N 15 HDL Cholesterol 56.8 mg/dL N 16 LDL Cholesterol 124 mg/dL N 17 1 Coat Ironer Hand: [id number] 2 Because ethnic data is not always readily [...] 15-29 5 Kidney failure <15 (or dialysis) 3 Desirable <150 Borderline high 150-199 High 200-499 Very High >500 4 Desirable <200 Borderline high 200-239 High >239 5 Low <40 Desirable: 40-60 High: >60 6 Desirable: <100 mg/dL Near Optimal: 100-129 mg/dL Borderline High: 130-159 mg/dL High: 160-189 mg/dL Very High: >189 mg/dL 7 [id number] Therapeutic target for the treatment of diabetes Mellitus patients is <7% HBA1C, and in selective patients <6.0%.Please refer to [place] [employer] Diabetic care guidelines for further information. 9 Serum levels of PSA measured using the [employer] DXI Hybritech immunoassay should not be interpreted as absolute evidence of the presence or absence of disease. The PSA value should be used in conjunction with other pertinent clinical diagnostic procedures. The values obtained with different assay methods or kits cannot be used interchangeably. 10 Serum levels of PSA measured using the [employer] DXI Hybritech immunoassay should not be interpreted [...] methods or kits cannot be used interchangeably. 11 Because ethnic data is not always readily [...] 15-29 5 Kidney failure <15 (or dialysis) 12 [facility] [place] [id number] [facility] [place] [address] 14 Desirable <150 Borderline high 150-199 High 200-499 Very High >500 15 Desirable <200 Borderline high 200-239 High >239 16 Low <40 Desirable: 40-60 High: >60 17 Desirable: <100 mg/dL Near Optimal: 100-129 mg/dL Borderline High: 130-159 mg/dL High: 160-189 mg/dL Very High: >189 mg/dL Procedures Date Code Description Status 05/13/2018 59800 Spirometry Completed 05/13/2018 35499 Tympanometry Completed 11/11/2017 04382 Spirometry Completed 11/11/2017 05474 Tympanometry Completed 10/08/2017 67401 Visual Screening Test Completed 10/08/2017 82314 Audiometry, Bekesy, Screening Completed 02/15/2017 36236 Visual Screening Test Completed 02/15/2017 15335 EKG Completed 02/15/2017 93623 Audiometry, Bekesy, Screening Completed Encounters Type Date Location Provider Dx Diagnosis Office Visit 12/21/2018 [facility] Yeni Gavin44.9 Chronic obstructive 8:45a N.P. pulmonary disease, unspecified E78.2 Mixed hyperlipidemia [...] D deficiency, unspecified Office Visit 12/01/2018 3:45p [facility] Ruchi Pozo44.Janeen Chronic obstructive Amado James. pulmonary disease, unspecified E78.2 Mixed hyperlipidemia L20.9 [...] Right testicular pain Office Visit 05/13/2018 4:00p [facility] Yeni [email or web address].Janeen Chronic obstructive N.P. pulmonary [...] Acute bronchitis, unspecified Office Visit 11/11/2017 4:45p [facility] Ruchi Pozo44.Janeen Chronic obstructive MSydney MSydneyD. pulmonary disease, unspecified E78.2 Mixed hyperlipidemia L20.9 [...] R09.81 Nasal congestion Office Visit 10/08/2017 3:15p [facility] Ruchi Pozo44.Janeen Chronic obstructive Erika MSydneyD. pulmonary disease, unspecified E78.2 Mixed hyperlipidemia L20.9 [...] w abnormal findings Office Visit 06/04/2017 2:45p [facility] Ruchi Pozo44.9 Chronic obstructive M., M.D. pulmonary disease, unspecified [...] erectile dysfunction, unspecified Office Visit 02/15/2017 10:15a [facility] Jayden Powell Z00.[address] [facility] general adult medical exam w abnormal findings F17.210 Nicotine dependence, cigarettes, uncomplicated J44.9 Chronic obstructive pulmonary disease, unspecified E66.01 Morbid (severe) obesity due to excess calories M15.9 Polyosteoarthritis, unspecified B35.3 Tinea pedis Office Visit 02/28/2016 2:15p [facility] Ruchi Pozo, M25.572 Pain in left M.D. ankle and joints of left foot J44.9 Chronic obstructive pulmonary disease, unspecified F17.210 Nicotine dependence, cigarettes, uncomplicated E78.2 Mixed hyperlipidemia L20.9 Atopic dermatitis, unspecified J30.9 Allergic rhinitis, unspecified D48.5 Neoplasm of uncertain behavior of skin Office Visit 02/19/2016 11:15a [facility] Jayden Powell M15.9 Polyosteoarthritis, Office TOP DYEING MACHINE TENDER unspecified M77.32 Calcaneal spur, left foot E66.9 Obesity, unspecified Plan of Treatment 12/21/2018 - Geraldo Mendenhall N.P.J44.9 Chronic obstructive pulmonary disease, unspecifiedComments:INCREASE PO FLUIDRESTSMOKING QTVFYOLYHX06.2 Mixed hyperlipidemiaComments:DIET REVIEWED CONTINUE DIETWT LOSSF/U LAB FBWL20.9 Atopic dermatitis, unspecifiedComments:SKIN CARE INSTRUCTIONS LOTION OR BABY OIL 2-3 APPLICATION PER DAYUSE MOISTURIZING SOAPAVOID PROLONGED WATER EXPOSUREAVOID USING HOT WATER IN OUFZDDE59.9 Allergic rhinitis, unspecifiedComments:INCREASE PO FLUID USE ANTIHISTAMINE PRN SECOND HAND SMOKING XZFFZBARZM38.210 Nicotine dependence, cigarettes, uncomplicatedComments:SMOKING CESSATION JETRQWRUCCKK83.01 Morbid (severe) obesity due to excess caloriesComments:WT LOSS COUNCELLINGEXERCISEDIET WWCEXVKDTHDI33.9 Polyosteoarthritis, unspecifiedComments:EXERCISE/HEAT/MESSAGETYLENOL OR MOTRIN PRNAVOID HEAVY LIFTINGWT LOSSM25.572 Pain in left ankle and joints of left footComments:EXERCISE/HEAT/MESSAGETYLENOL OR MOTRIN PRNACE WRAP PRN USE SHOES INSERTS/ CUSHION F/U WITH PNOBWKNSK14.32 Calcaneal spur, left footComments: EXERCISE/HEAT/MESSAGE TYLENOL OR MOTRIN PRNACE WRAP PRND48.5 Neoplasm of uncertain behavior of skinComments:F/U WITH CKFOHZHIPEFF54.1 Tinea unguiumComments:NAIL CARE INSTRUCTIONSTEACHING ABOUT DISEASE AND TREATMENT EUGOVLPD14.9 Male erectile dysfunction, unspecifiedComments:COUNCELLING AND TEACHING ON DIFEEERENT TREATMENT SOPEFZWD50.569 Pain in unspecified kneeComments :EXERCISE/HEAT /MESSAGEAVOID HEAVY LIFTING WT LOSSTYLENOL OR MOTRIN PRND40.11 Neoplasm of uncertain behavior of right hqzdwqW82.811 Right testicular painComments:TZTAAOZA20.9 Vitamin D deficiency, unspecifiedComments:INCREASE EXPOSURE TO SUNREVIEW OF DIET
[2019-01-14 17:09] VITALS: BP 134/78
--- NOTE | 2019-01-14 17:16 | UC ---
Laceration HPI - HPI Summary HPI Summary: Patient presents to urgent care with a laceration his left forearm. Patient states he's assigned less than 30 minutes prior to arrival. Patient was using a knife to cut a piece of plastic and water here when he cut himself. Patient is ambidextrous. Patient states it was bleeding initially but that improved. Patient's tetanus was 5 years ago. Patient is not immunocompromised. No paresthesia, weakness medications reviewed - History Of Current Complaint Chief Complaint: UCSkin Stated Complaint: LEFT FOREARM LACERATION Time Seen by Provider: 01/14/19 17:06 Hx Obtained From: Patient Laceration Location: Arm Mechanism Of Injury: Sharp Trauma Onset/Duration: Sudden Onset Severity: Mild Pain Intensity: 0 Pain Scale Used: 0-10 Numeric - Allergies/Home Medications Allergies/Adverse Reactions: Allergies Allergy/AdvReac Type Severity Reaction Status Date / Time No Known Allergies Allergy Verified 01/14/19 17:10 Home Medications: Home Medications diPHENhydraMINE PO* [Benadryl PO 25 MG TAB*] 50 mg PO DAILY PRN 01/14/19 [ History Confirmed 01/14/19] PMH/Surg Hx/FS Hx/Imm Hx Previously Healthy: Yes - Surgical History Surgical History: Yes Surgery Procedure, Year, and Place: right knee 2009~;. testicular benign mass 1988. basal cell removal left shoulder. DEVIATED SEPTUM - Family History Known Family History: Positive: Hypertension, Non-Contributory - Social History Occupation: Employed Full-time Lives: With Family Alcohol Use: Rare Substance Use Type: None Smoking Status (MU): Heavy Every Day Tobacco Smoker Type: Cigarettes Amount Used/How Often: 1.5 ppd Length of Time of Smoking/Using Tobacco: started age 14 Have You Smoked in the Last Year: Yes - Immunization History Most Recent Tetanus Shot: 5 years ago. Vaccination Up to Date: No Review of Systems All Other Systems Reviewed And Are Negative: Yes Skin: Positive: Other - laceration Physical Exam - Summary Physical Exam Summary: Vital Signs Reviewed: Yes A+Ox3, no distress Eyes: Conjunctiva Clear ENT: Hearing grossly normal neck: supple Respiratory: Positive: No respiratory distress, No accessory muscle use Cardiovascular: skin color reflect adequate perfusion Musculoskeletal Exam: SOL x 4 without difficulty + flex/ext elbow, wrist Neurological: Positive: Alert, ambulatory without difficulty 5/5 grasp + thumb up, a ok, finger spread, finger cross +g ross sensation Psychological: Positive: Normal Response To Family Skin: Positive: left mid forearm - 1.5cm laceration - volar aspect no active bleeding, skin retracted Triage Information Reviewed: Yes Vital Signs: Initial Vital Signs Temp 97.7 F 01/14/19 17:05 Pulse 69 01/14/19 17:05 Resp 16 01/14/19 17:05 BP 134/78 01/14/19 17:05 Pulse Ox 97 01/14/19 17:05 Procedures - Procedure Summary Procedure Summary: verbal permission to treat time out completed with RN at bedside pt prepped in usual, sterile fashion copious irrigation with 250ml sterile saline under pressure pt tolerated well reviewed with pt wound care s/s infection - Laceration/Wound Repair 1 Location: upper extremity Description: Linear Anesthesia: Local, 1.0% - 1ml Betadine Prep?: No Laceration/Wound Explored: clean Closure: Single Layer - 3 Debridement: minimal Suture Type: Nylon - 5-0 Number of Sutures: 3 Layer Closure?: No Sterile Dressing Applied?: Yes Laceration Course/Dx - Course/Dx Course Of Treatment: Patient presents after sustaining a laceration his left forearm 30 minutes prior to arrival. Bleeding controlled. CSM distally intact. Patient's tetanus is up-to-date. Discussed with patient treatment options. 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 We'll place sutures of a reviewed with patient signs and symptoms of infection wound care. Patient comfortable in agreement with plan. - Diagnosis Provider Diagnosis: Laceration of left forearm Discharge - Sign-Out/Discharge Documenting (check all that apply): Patient Departure All imaging exams completed and their final reports reviewed: No Studies - Discharge Plan Condition: Stable Disposition: HOME Patient Education Materials: Care For Your Stitches (ED), Laceration (ED) Referrals: Ruchi Pozo MD [Primary Care Provider] - Additional Instructions: - your stitches should come out in 8-10 days - you can return here, go to your Doctor or any urgent care center - okay to alternate ibuprofin (advil, motrin) and tylenol every 3hours as needed for pain -Anticipate increased discomfort over the next several hours as the numbing medication wears off -Keep your wound clean and dry - no soaking for 24 hours. Then, okay for wound to get wet - pat dry, don't rub -apply a thin layer of antibiotic ointment (neosporin, polysporin) 2-3 times a day - when you have a cut, you will have a scar. To minimize scar formation - keep your wound clean - monitor for signs of infection - reddness, red streaking, odor, green drainage -Once sutures out - keep your wound out of direct sun (wear a hat or sun screen ) - it may take up to 8 months for your scar to reach its final state - Contact your doctor or return here with questions or concerns - Billing Disposition and Condition Condition: STABLE Disposition: Home
[2019-01-14] MEDS ORDERED: Lidocaine 1%* 5 ML VIAL INJ ONE (17:17)
== END 2019-01-14 17:52 | disposition home or self-care (01) ==
LOC: UCCORT 16:50
DX: S51.812A Laceration without foreign body of left forearm, initial encounter (principal); F17.210 Nicotine dependence, cigarettes, uncomplicated; W26.0XXA Contact with knife, initial encounter; Y92.9 Unspecified place or not applicable
CPT/HCPCS: 12001; 99211; G0463

== ENCOUNTER 2019-01-22 17:53 | Emergency (ER) | payer OTHER ==
[2019-01-22 18:11] VITALS: BP 133/74
--- NOTE | 2019-01-22 18:23 | UC ---
HPI Wound/Suture Re-check - HPI Summary HPI Summary: 53-year-old male who is here for a suture removal. He accidentally cut himself with a utility knife 8 days ago causing an approximately 1.0 cm laceration to the left forearm. Area has been healing without difficulty. - History Of Current Complaint Chief Complaint: UCSkin Stated Complaint: REMOVE STITCHES Time Seen by Provider: 01/22/19 18:20 Hx Obtained From: Patient Onset/Duration: Sudden Onset Severity: Mild Pain Intensity: 0 Procedure Type: Laceration repair 8 days ago. - Allergies/Home Medications Allergies/Adverse Reactions: Allergies Allergy/AdvReac Type Severity Reaction Status Date / Time No Known Allergies Allergy Verified 01/22/19 18:11 Home Medications: Home Medications NK [No Home Medications Reported] 01/22/19 [History Confirmed 01/22/19] PMH/Surg Hx/FS Hx/Imm Hx Previously Healthy: Yes - Surgical History Surgical History: Yes Surgery Procedure, Year, and Place: right knee 2009~;. testicular benign mass 1988. basal cell removal left shoulder. DEVIATED SEPTUM - Family History Known Family History: Positive: Hypertension, Non-Contributory - Social History Alcohol Use: Rare Substance Use Type: None Smoking Status (MU): Heavy Every Day Tobacco Smoker Type: Cigarettes Amount Used/How Often: 1.5 ppd Length of Time of Smoking/Using Tobacco: started age 14 Have You Smoked in the Last Year: Yes - Immunization History Most Recent Tetanus Shot: 2013 Vaccination Up to Date: No Review of Systems All Other Systems Reviewed And Are Negative: Yes Skin: Positive: Other - Laceration left forearm has 3 sutures intact and no evidence of infection. Is Patient Immunocompromised?: No Physical Exam Triage Information Reviewed: Yes Appearance: Well-Appearing, No Pain Distress, Well-Nourished Vital Signs: Initial Vital Signs Temp 97.9 F 01/22/19 18:07 Pulse 74 01/22/19 18:07 Resp 16 01/22/19 18:07 BP 133/74 01/22/19 18:07 Pulse Ox 98 01/22/19 18:07 Vital Signs Reviewed: Yes Musculoskeletal Exam: Normal Neurological Exam: Normal Psychological Exam: Normal Skin: Positive: Other - 3 intact sutures to the lacerations left forearm with no evidence of secondary skin infection. Course/Dx - Course Course Of Treatment: 3 sutures were removed without difficulty. The area has healed nicely. A Band- Aid was applied. Patient is to follow-up with his primary care provider as needed. - Diagnosis Provider Diagnosis: Encounter for removal of sutures Discharge - Sign-Out/Discharge Documenting (check all that apply): Patient Departure All imaging exams completed and their final reports reviewed: No Studies - Discharge Plan Condition: Fair Disposition: HOME Patient Education Materials: Stitches Removal (ED) Referrals: Ruchi Pozo MD [Primary Care Provider] - Additional Instructions: Follow-up with your primary care provider as needed for any further care or concerns. - Billing Disposition and Condition Condition: FAIR Disposition: Home - Attestation Statements Provider Attestation: I was available for consult. This patient was seen by the SEVERO. The patient was not presented to , seen by or examined by -Diego Prather MD
== END 2019-01-22 18:28 | disposition home or self-care (01) ==
LOC: UCCORT 17:53
DX: S51.812D Laceration without foreign body of left forearm, subsequent encounter (principal); Z48.02 Encounter for removal of sutures; F17.210 Nicotine dependence, cigarettes, uncomplicated; X58.XXXD Exposure to other specified factors, subsequent encounter
CPT/HCPCS: 99211; G0463

== ENCOUNTER 2019-06-03 10:30 | Emergency (ER) | payer OTHER ==
[2019-06-03 10:58] VITALS: BP 109/63
--- NOTE | 2019-06-03 11:53 | UC ---
Throat Pain/Nasal Ceasar HPI - HPI Summary HPI Summary: 54 year old male who has had cold symptoms with head congestion and productive cough of yellow sputum over the past 2 weeks. He is a smoker. He denies any fever or chills. He has been blowing his nose a lot with some sinus pressure. - History of Current Complaint Chief Complaint: UCRespiratory Stated Complaint: COUGH, CHEST CONGESTION Time Seen by Provider: 06/03/19 11:51 Hx Obtained From: Patient Onset/Duration: Gradual Onset Severity: Mild Pain Intensity: 0 Cough: Productive - Productive cough of yellow sputum Associated Signs & Symptoms: Positive: Sinus Discomfort, Nasal Discharge - Allergies/Home Medications Allergies/Adverse Reactions: Allergies Allergy/AdvReac Type Severity Reaction Status Date / Time No Known Allergies Allergy Verified 06/03/19 10:54 PMH/Surg Hx/FS Hx/Imm Hx Previously Healthy: Yes - Surgical History Surgical History: Yes Surgery Procedure, Year, and Place: right knee 2009~;. testicular benign mass 1988. basal cell removal left shoulder. DEVIATED SEPTUM - Family History Known Family History: Positive: Hypertension, Non-Contributory - Social History Alcohol Use: Occasionally Substance Use Type: None Smoking Status (MU): Heavy Every Day Tobacco Smoker Type: Cigarettes Amount Used/How Often: 1.5 ppd Length of Time of Smoking/Using Tobacco: started age 14 Have You Smoked in the Last Year: Yes - Immunization History Most Recent Tetanus Shot: 2014 Vaccination Up to Date: No Review of Systems All Other Systems Reviewed And Are Negative: Yes ENT: Positive: Nasal Discharge, Sinus Congestion, Sinus Pain/Tenderness Respiratory: Positive: Cough - Productive cough of yellow sputum. Is Patient Immunocompromised?: No Physical Exam Triage Information Reviewed: Yes Appearance: Well-Appearing, No Pain Distress, Well-Nourished Vital Signs: Initial Vital Signs Temp 98.1 F 06/03/19 10:54 Pulse 70 06/03/19 10:54 Resp 16 06/03/19 10:54 BP 109/63 06/03/19 10:54 Pulse Ox 98 06/03/19 10:54 Vital Signs Reviewed: Yes Eyes: Positive: Conjunctiva Clear ENT: Positive: Hearing grossly normal, Pharynx normal - Yellow purulent postnasal drainage., Nasal congestion, Nasal drainage - Yellow nasal coryza especially on the left, TMs normal, Uvula midline Neck: Positive: Supple, Nontender, No Lymphadenopathy Respiratory: Positive: No respiratory distress, No accessory muscle use, Rhonchi , Wheezing - Mild extremely wheezing. Cardiovascular: Positive: RRR, No Murmur, Pulses Normal, Brisk Capillary Refill Musculoskeletal Exam: Normal Neurological Exam: Normal Psychological Exam: Normal Skin Exam: Normal Throat Pain/Nasal Course/Dx - Course Course Of Treatment: DuoNeb treatment: The patient felt much better following the DuoNeb treatment and had much better air movement with only one small expiratory wheeze posteriorly. I'm going to treat the patient for a sinus infection with doxycycline 100 mg by mouth twice a day 10 days and prednisone for the bronchitis. - Differential Dx/Diagnosis Provider Diagnosis: Sinusitis, Bronchitis Discharge ED - Sign-Out/Discharge Documenting (check all that apply): Patient Departure All imaging exams completed and their final reports reviewed: No Studies - Discharge Plan Condition: Good Disposition: HOME Prescriptions: DOXYcycline CAP(*) [DOXYcycline 100MG CAP(*)] 100 mg PO BID 10 Days #20 cap predniSONE TAB* [Deltasone 10 MG TAB*] 10 mg PO DAILY 12 Days #30 tab Patient Education Materials: Sinusitis (ED), Acute Bronchitis (ED) Referrals: Ruchi Pozo MD [Primary Care Provider] - Additional Instructions: No dairy products, antacids or multivitamins 2 hours before you take the doxycycline and 2 hours after you take doxycycline however you want to take it with food. Take the prednisone with food. Follow-up with your primary care provider next Wednesday or Wednesday if no improvement. - Billing Disposition and Condition Condition: GOOD Disposition: Home - Attestation Statements Provider Attestation: I was available for consult. This patient was seen by the SEVERO. The patient was not presented to, seen by, or examined by me. -Viv
[2019-06-03] MEDS ORDERED: Albuterol/Ipratropium NEB.SOL* Albuterol 2.5 MG/Ipratropium 0.5 MG 3 ML INH ONE (11:58)
== END 2019-06-03 12:36 | disposition home or self-care (01) ==
LOC: UCCORT 10:30
DX: J32.9 Chronic sinusitis, unspecified (principal); J40 Bronchitis, not specified as acute or chronic; F17.210 Nicotine dependence, cigarettes, uncomplicated
CPT/HCPCS: 99212; A9270-GY; G0463